=== PATIENT | female | born 1940 | race Caucasian/White ===

== ENCOUNTER 2022-06-20 17:50 | Inpatient (IN) | payer MEDICARE, OTHER ==
[~2022-06-20] VITALS: Ht 152.4 cm; Wt 50.5 kg
[2022-06-20 17:50] VITALS: BP_SYST 120
--- NOTE | 2022-06-20 17:50 | NUR ---
Placed in room 07. Placed on quality assurance monitor final, blood pressure machine and pulse oximeter. To gown for exam. Side rails up.
--- NOTE | 2022-06-20 17:52 | NUR ---
ER DR. BERNARD AT THE BEDSIDE EXAMINING PT
[2022-06-20] MEDS ORDERED: NS 500 ML IV ONE (18:00)
[2022-06-20] MEDS ORDERED: ONDANSETRON HCL 4 MG/2 ML VIAL IVP ONE (18:00)
--- NOTE | 2022-06-20 18:00 | NUR ---
PT BIBA [facility] FROM URGENT CARE WHERE PT WAS BEING SEEN FOR FLU LIKE SYMPTOMS (COVID +), BEGAN TO HAVE RAPID HEART RATE- PER EMS PT WAS IN SVT AT A RATE IN 170S, GIVEN ADENOSINE 6MG THEN 12MG AND ZOFRAN 4 MG EN ROUTE. PT ARRIVES VSS, AAOX4.
[2022-06-20 18:19] LABS: BASOPHILS % (AUTO) 0.2 % (0.0-2.0); EOSINOPHILS % (AUTO) 0.1 % (0.0-4.0); HEMATOCRIT 38.2 % (36-48); HEMOGLOBIN 12.8 g/dL (12.0-16.0); LYMPHOCYTES # (AUTO) 0.8 K/uL (1.0-5.5); LYMPHOCYTES % (AUTO) 14.3 % (20.5-51.5); MEAN CORPUSCULAR HEMOGLOBIN 29 pg (27-31); MEAN CORPUSCULAR HGB CONC 34 % (32-36); MEAN CORPUSCULAR VOLUME 87 fL (79.0-98.0); MONOCYTES # (AUTO) 0.5 K/uL (0.0-1.0); MONOCYTES % (AUTO) 9.7 % (1.7-9.3); NEUTROPHILS # (AUTO) 4.1 K/uL (1.8-7.7); NEUTROPHILS % (AUTO) 75.7 % (40.0-70.0); PLATELET COUNT (AUTO) 136 K/uL (130-430); RED BLOOD CELL COUNT(AUTO) 4.39 MIL/uL (4.2-6.2); RED CELL DISTRIBUTION WIDTH 13.5 % (9.0-15.0); WHITE BLOOD COUNT (AUTO) 5.4 K/uL (4.8-10.8)
[2022-06-20 18:26] LABS: ANION GAP 9 (5-15); CALCIUM 9.1 mg/dL (8.4-11.0); CHLORIDE 107 mmol/L (98-107); CREATININE 1.32 mg/dL (0.55-1.30); GLUCOSE 165 mg/dL (70-99); UREA NITROGEN, BLOOD 24 mg/dL (8-21)
[2022-06-20 18:36] LABS: ALANINE AMINOTRANSFERASE 19 U/L (12-78); ALBUMIN 3.4 g/dL (3.4-4.8); ASPARTATE AMINOTRANSFERASE 21 U/L (10-37); TOTAL BILIRUBIN 0.7 mg/dL (0.0-1.0)
--- NOTE | 2022-06-20 19:54 | NUR ---
PT RESTING IN BED IN RESTING, PT A&O X2 AND FOLLOWING COMMANDS. PT DENIES SOB AND CP. REPORTING NAUSEA, NO VOMITING. PT VSS. SAFETY PRECAUTIONS IN PLACE AND CONNECTED TO MONITOR.
[2022-06-20] MEDS ORDERED: ONDANSETRON HCL 4 MG/2 ML VIAL ONE (20:06)
--- NOTE | 2022-06-20 20:16 | NUR ---
PT DOES NOT KNOW THE NAMES OF HER MEDICATIONS SHE TAKES AT HOME.
--- NOTE | 2022-06-20 20:37 | NUR ---
COVID SWAB OBTAINED AND SENT TO LAB.
--- NOTE | 2022-06-20 20:38 | NUR ---
MRSA SWAB OBTAINED AND SENT TO LAB.
--- NOTE | 2022-06-20 20:42 | NUR ---
Admit bed requested Patient will be admitted to care of Dr. GODINEZ. Admitted to TELEMETRY unit. Diagnosis ELEVATED TROPONIN Inpatient (Yes or No) YES Observation (Yes or No) NO Orientation concerns or request close to nursing station (Yes or No) NO Covid Status PENDING On vent or bipap NO Isolation requirements DROPLET Needs a sitter NO From Home (Yes or if No enter name of facility) YES Requires Dialysis (Yes or No) NO Med Rec Completed (Yes of No) PT UNABLE TO PROVIDE MEDICATIONS
--- NOTE | 2022-06-20 23:45 | NUR ---
Patient will be admitted to care of DR. GODINEZ. Admitted to TELEMETRY unit. Will go to room 125B. Belongings list completed. Complete and up to date summary report printed. SBAR report given TO MAULIK BRADFORD at bedside with opportunity for questions.
--- NOTE | 2022-06-20 23:50 | NUR ---
PATIENT ARRIVED VIA STRETCHER FROM ER, CONDITION STABLE, NO DISTRESS NOTED, 02 SAT 100% ON 2L/NC, PATIENT DESATS ON ROOM AIR PER ER NURSE, ASSESSMENT COMPLETE, ORIENTED TO ROOM AND BED CONTROLS, PATIENT ASSISTED TO BATHROOM WITH 1 ASSIST, ALFONSO WELL, TELE MONITOR APPLIED, SR , NO SKIN BREAKDOWN NOTED, BED ALARM SET, AND PATIENT INSTRUCTED NOT TO GET OUT OF BED WITHOUT CALLING FOR NURSE
[2022-06-21] VITALS (7 sets, daily range): BP systolic 116–142
[2022-06-21] MEDS ORDERED: LOSA100T3 PO (00:33)
[2022-06-21] MEDS ORDERED: DILT120C89 PO (00:33)
[2022-06-21] MEDS ORDERED: LEVO75TA7 PO (00:33)
[2022-06-21] MEDS ORDERED: APIX2.5T PO (00:33)
[2022-06-21] MEDS ORDERED: LIP40 PO (00:33)
[2022-06-21] MEDS ORDERED: MEMA5TAB PO (00:33)
[2022-06-21] MEDS ORDERED: OXYB10TA4 PO (00:34)
[2022-06-21] MEDS ORDERED: SENN8.6T19 PO (00:34)
[2022-06-21] MEDS ORDERED: ONDA-8 TL (00:34)
--- NOTE | 2022-06-21 02:15 | NUR ---
PATIENT SLEEPING AND IN NO DISTRESS AT THIS TIME
--- NOTE | 2022-06-21 05:06 | NUR ---
CONSULTATION PAGED/CALLED Reason for Consultation: ELEVATED TROP Person Who was Notified: VIA TEXT Consulting Physician: Chemistry Tutor Specialty: CARDIO Ordering Physician:
--- NOTE | 2022-06-21 18:53 | NUR ---
CRITICAL [facility] INFORMED RN OF CRITICAL [facility]
--- NOTE | 2022-06-21 19:03 | NUR ---
This promotion writer(primary RN), received a critical lab results from lab T[facility] I 1222, Dr Andrade notified via [phone], and advise to continue to monitor patient.
[2022-06-21] MEDS: ATORVASTATIN 20 MG TABLET PO SCH (21:06)
[2022-06-21] MEDS: LOSARTAN POTASSIUM 50 MG TABLET (COZAAR) PO SCH (21:06)
[2022-06-22 00:51] VITALS: BP_SYST 132
--- NOTE | 2022-06-22 06:24 | NUR ---
Patient in bed. No acute distress noted. Ambulates to the bathroom without difficulty. Will continue to monitor.
[2022-06-22 08:00] VITALS: BP_SYST 129
[2022-06-22] MEDS: LOSARTAN POTASSIUM 50 MG TABLET (COZAAR) PO SCH (08:09)
[2022-06-22] MEDS: ATORVASTATIN 20 MG TABLET PO SCH (08:10)
[2022-06-22 11:13] LABS: ANION GAP 7 (5-15); CALCIUM 8.9 mg/dL (8.4-11.0); CHLORIDE 106 mmol/L (98-107); CREATININE 0.88 mg/dL (0.55-1.30); GLUCOSE 147 mg/dL (70-99); UREA NITROGEN, BLOOD 18 mg/dL (8-21)
[2022-06-22 11:18] LABS: ALANINE AMINOTRANSFERASE 23 U/L (12-78); ASPARTATE AMINOTRANSFERASE 29 U/L (10-37); TOTAL BILIRUBIN 0.5 mg/dL (0.0-1.0)
--- NOTE | 2022-06-22 11:37 | NUR ---
Shift Summary: patient is AAOX4. vitals are stable. patient and son updated on plan of care for shift. patient and son state they have no questions at this time. critical lab reported. Cardiology paged approx [phone]. patient educated on importance of using call light if patient needs staff assistance due to patient being high risk for falls. patient states she understand. will continue out monitor. call light within reach, bed set to low, locked.
[2022-06-22 12:00] VITALS: BP_SYST 130
[2022-06-22 16:53] VITALS: BP_SYST 128
--- NOTE | 2022-06-22 19:00 | NUR ---
Opening Note PT lying in her bed and watching TV. isolated due to positive of COVID19. No S/S of distress or pain. Breathing even and nonlabored. VSS. Bed alarm on and lowest position. Call light in reach.
[2022-06-22 19:30] VITALS: BP_SYST 126
[2022-06-22 20:00] VITALS: BP_SYST 126
--- NOTE | 2022-06-22 22:00 | NUR ---
Replaced telemetry electrodes Pt's telemetry electrodes detached. replaced with new ones.
[2022-06-23 00:59] VITALS: BP_SYST 152
--- NOTE | 2022-06-23 02:30 | NUR ---
Rounding Note PT lying in her bed with eyes closed. Breathing even and nonlabored. No S/S of distress or pain at this moment.
--- NOTE | 2022-06-23 07:20 | NUR ---
CLOSING NOTE PT LYING IN BED. NO S/S OF SCUTE DISTRESS OR PAIN. DENIED SOB. BED ALARM ON AND LOWEST POSITION.
[2022-06-23 08:00] VITALS: BP_SYST 156
[2022-06-23] MEDS: LOSARTAN POTASSIUM 50 MG TABLET (COZAAR) PO SCH (09:10)
[2022-06-23] MEDS: ATORVASTATIN 20 MG TABLET PO SCH (09:11)
[2022-06-23 11:08] LABS: ANION GAP 8 (5-15); CALCIUM 9.1 mg/dL (8.4-11.0); CHLORIDE 105 mmol/L (98-107); CREATININE 0.85 mg/dL (0.55-1.30); GLUCOSE 196 mg/dL (70-99); UREA NITROGEN, BLOOD 13 mg/dL (8-21)
[2022-06-23 11:15] LABS: ALANINE AMINOTRANSFERASE 24 U/L (12-78); ALBUMIN 3.1 g/dL (3.4-4.8); ASPARTATE AMINOTRANSFERASE 29 U/L (10-37); TOTAL BILIRUBIN 0.5 mg/dL (0.0-1.0)
[2022-06-23] MEDS ORDERED: *HEPARIN PER PHARMACY XX ONE (12:15)
[2022-06-23 12:40] VITALS: BP_SYST 152
[2022-06-23 14:19] LABS: PROTHROMBIN TIME 10.4 SECS (9.5-12.5)
[2022-06-23] MEDS ORDERED: HEPARIN SODIUM,PORCINE 5,000 UNITS/ML VIAL IVP ONE (15:00)
[2022-06-23] MEDS ORDERED: HEPARIN SODIUM,PORCINE 2000 UNITS/0.4 ML BOLUS IVP PRN (15:00)
[2022-06-23] MEDS ORDERED: HEPARIN SODIUM,PORCINE 3000 UNITS/0.6 ML BOLUS IVP PRN (15:00)
[2022-06-23] MEDS: HEPARIN 25,000 UNITS in 250 ML PREMIX IV PRN (15:28)
[2022-06-23 16:02] VITALS: BP_SYST 140
--- NOTE | 2022-06-23 18:24 | NUR ---
CLOSING NOTE: PT IS A/A/OX4. HEPARIN DRIP STARTED PER PHARMACY R/T ELEVATED TROPONIN. PT REMAINED STABLE THROUGHOUT THE SHIFT. DENIES ANY C/O CHEST PAIN. BLEEDING PRECAUTIONS INSTRUCTED TO PT. AND NPO AFTER MIDNIGHT FOR POSSIBLE LEXISCAN TEST. PT REMOVED JEWELRY (1 GOLD NECKLACE WITH CROSS PENDANT, X2 YELLOW RINGS, AND 1 GOLD WATCH, PT PLACED THEM ALL IN HER PURSE) ALL CARE NEEDS MET AT THIS TIME. WILL ENDORSE CARE TO PM NURSE.
--- NOTE | 2022-06-23 19:40 | NUR ---
OPENING NOTE PT IS STANDING NEXT TO NEIGHBORS BED TALKING. NO APPARENT SIGNS OF DISTRESS NOTED AT THIS TIME. BED IN LOWEST POSITION WITH SAFETY PRECAUTIONS IN PLACE. CALL LIGHT WITH REACH, PT VERBALIZED HOW TO USE IT. IV FLUIDS RUNNING ORDERED. ALL NEEDS MET AT THIS TIME.
[2022-06-23 20:00] VITALS: BP_SYST 153
--- NOTE | 2022-06-23 23:50 | NUR ---
ROUNDS PT IS LION IN BED WITH EYES OPEN. NO APPARENT SIGNS OF DISTRESS NOTED AT THIS TIME. IV FLUIDS RUNNING ORDERED.
[2022-06-24 00:41] VITALS: BP_SYST 157
--- NOTE | 2022-06-24 02:10 | NUR ---
ROUNDS ASSISTED PT TO BATHROOM. NO APPARENT SIGNS OF DISTRESS NOTED AT THIS TIME. IV FLUIDS RUNNING ORDERED. ALL NEEDS MET AT THIS TIME.
--- NOTE | 2022-06-24 04:15 | NUR ---
ROUNDS PT IS LION IN BED WITH EYES CLOSED. NO APPARENT SIGNS OF DISTRESS NOTED AT THIS TIME. IV FLUIDS RUNNING ORDERED.
--- NOTE | 2022-06-24 06:30 | NUR ---
IV PULLED OUT PT ACCIDENTALLY PULLED OUT IV TO RIGHT FOREARM. SMALL AMUNT OF BLOOD COMING OUT. PRESSURE HELD FOR 3 MINUTES.
--- NOTE | 2022-06-24 07:09 | NUR ---
CLOSING NOTE PT IS LYING IN BED. NO APPARENT SIGNS OF DISTRESS NOTED AT THIS TIME. BED IN LOWEST POSITION WITH SAFETY PRECAUTIONS IN PLACE. CALL LIGHT WITH REACH. PT IS NPO.
--- NOTE | 2022-06-24 07:13 | NUR ---
IV RE-INSERTION: IV site accidentally pulled out by pt. Restarted on left forearm. Successful after 3 attempts. Resumed current IVF of heparin and regulated @ 6ml per hour. Will observe for any signs of infiltration.
[2022-06-24] MEDS ORDERED: REGADENOSON 0.4 MG/5 ML SYRINGE IVP ONE (10:05)
[2022-06-24 11:15] VITALS: BP_SYST 131
[2022-06-24] MEDS: LOSARTAN POTASSIUM 50 MG TABLET (COZAAR) PO SCH (13:19)
[2022-06-24] MEDS: ATORVASTATIN 20 MG TABLET PO SCH (13:20)
[2022-06-24 17:10] VITALS: BP_SYST 135
--- NOTE | 2022-06-24 19:25 | NUR ---
CHANGE OF SHIFT; endorsed by day shift nurse Sterling. on Heparin drip @ 600 units/hr. on Covid isolation. no distress. call light within reach.
[2022-06-24 20:00] VITALS: BP_SYST 136
--- NOTE | 2022-06-24 20:30 | NUR ---
NOTES: pt. awake, alert and oriented. resting when received. IV Heparin infusing. moves all extremities. on quality assurance monitor body and shows sinus rhtym. call light at bedside. safety precautions observed. instructed pt. to use call light for help and verbalized understanding.
--- NOTE | 2022-06-24 20:46 | NUR ---
END OF SHIFT SUMMARY: Patient has had a very good day today with no concerns. She has taken all prescribed medications and she got up throughout the day and walked to the bathroom, took a bath, brushed teeth and other personal care provided on her own. Patient spent the day watching TV and speaking on the phone to family and friends. Patient had no needs at the end of the shift and showed no signs of distress or discomfort at this time.
--- NOTE | 2022-06-24 22:30 | NUR ---
NOTES: spoke to Dr. Calvert, cotton header for Dr. Luna, ordered PTT in am, pt. on Heparin drip @ 600 units/hr via left forearm. no complaints manifested. ambulated to the restroom, stand by.
--- NOTE | 2022-06-25 00:15 | NUR ---
NOTES: pt. asleep when checked. call light at bedside.
[2022-06-25 00:24] VITALS: BP_SYST 154
--- NOTE | 2022-06-25 02:30 | NUR ---
NOTES: cardiac pattern unchanged. repositioned self. IV Heparin continuous. no complaints.
--- NOTE | 2022-06-25 04:00 | NUR ---
NOTES: condition observed. remain sleeping. isolation observed for Covid.
--- NOTE | 2022-06-25 05:30 | NUR ---
NOTES: pt. awakened and ambulated to the restroom, stand by. kept comfortable in bed, covered with blanket.
--- NOTE | 2022-06-25 06:45 | NUR ---
CLOSING NOTES; CONDITION UNCHANGED, hEPARIN DRIP @ 600 UNITS/HR. PENDING PTT. FOR FURTHER CARE AND OBSERVATION WILL ENDORSE TO INCOMING SHIFT.
[2022-06-25 08:00] VITALS: BP_SYST 155
[2022-06-25] MEDS: LOSARTAN POTASSIUM 50 MG TABLET (COZAAR) PO SCH ×2 (09:00→10:51)
[2022-06-25] MEDS: ATORVASTATIN 20 MG TABLET PO SCH (09:00)
[2022-06-25] MEDS: HEPARIN 25,000 UNITS in 250 ML PREMIX IV PRN (11:29)
[2022-06-25 12:00] VITALS: BP_SYST 128
[2022-06-25 13:50] LABS: ANION GAP 8 (5-15); CALCIUM 9.2 mg/dL (8.4-11.0); CHLORIDE 106 mmol/L (98-107); CREATININE 0.74 mg/dL (0.55-1.30); GLUCOSE 86 mg/dL (70-99); UREA NITROGEN, BLOOD 10 mg/dL (8-21)
[2022-06-25 13:56] LABS: ALANINE AMINOTRANSFERASE 28 U/L (12-78); ALBUMIN 3.1 g/dL (3.4-4.8); ASPARTATE AMINOTRANSFERASE 25 U/L (10-37); TOTAL BILIRUBIN 0.3 mg/dL (0.0-1.0)
[2022-06-25 15:25] VITALS: BP_SYST 123
[2022-06-25] MEDS ORDERED: APIXABAN 2.5 MG TABLET PO ONE (15:30)
[2022-06-25 20:00] VITALS: BP_SYST 138
[2022-06-25] MEDS: APIXABAN 2.5 MG TABLET PO SCH (21:00)
--- NOTE | 2022-06-25 21:26 | NUR ---
NEW ORDERS FOR DISCHARGE PLANNING. HEPARIN DRIP DISCONTINUED AND PATIENT STARTED ON ELQUIS LAST PTT VERY HIGH SO HELD FIRST DOSE. INFORMED NIGHT NURSE TO FOLLOW LABS PRIOR TO GIVING EVENING DOSE. IN GOOD SPIRITS. NO COMPLAINTS OR REQUESTS ALL DAY
[2022-06-25 23:58] VITALS: BP_SYST 140
[2022-06-26 08:00] VITALS: BP_SYST 141
--- NOTE | 2022-06-26 08:21 | NUR ---
OPENING NOTES: PT IN BED WITH EYES CLOSED. PT WOKE UP TO EAT BREAKFAST. NO S/S OF DISTRESS OR PAIN REPORTED. BREATHING IS EVEN AND UNLABORED ON RA. ALL NEEDS MET AT THIS TIME, SAFETY CHECKS MADE AND CALL LIGHT WITHIN REACH.
[2022-06-26] MEDS: APIXABAN 2.5 MG TABLET PO SCH ×2 (09:00→21:16)
[2022-06-26] MEDS: ATORVASTATIN 20 MG TABLET PO SCH (10:05)
--- NOTE | 2022-06-26 10:08 | NUR ---
NOTES: HELD ELIQUIS. PT PTT IS 150 FROM LABS DRAWN ON 06/25/22
[2022-06-26 12:00] VITALS: BP_SYST 139
[2022-06-26 12:02] LABS: ANION GAP 6 (5-15); CALCIUM 9.2 mg/dL (8.4-11.0); CHLORIDE 105 mmol/L (98-107); GLUCOSE 122 mg/dL (70-99); UREA NITROGEN, BLOOD 14 mg/dL (8-21)
[2022-06-26 12:09] LABS: ALANINE AMINOTRANSFERASE 38 U/L (12-78); ASPARTATE AMINOTRANSFERASE 33 U/L (10-37); TOTAL BILIRUBIN 0.4 mg/dL (0.0-1.0)
--- NOTE | 2022-06-26 12:14 | NUR ---
CRITICAL LAB: TROPONIN LEVEL 938 REPORTED FROM JACQUELIN IN THE LAB. CALLING DR ARRIAGA TO REPORT. Addendum: 06/26/22 at 1233 [address] Makayla Ortiz LVN [address] ARRIAGA CALLED BACK, CRITICAL LAB OF [facility]OPON[facility] 938 REPORTED. NO NEW ORDERS AT THIS TIME.
--- NOTE | 2022-06-26 14:34 | NUR ---
Need PT eval to determine SNf Placement, patient will not be able to go until 07/01/22
[2022-06-26 16:00] VITALS: BP_SYST 140
--- NOTE | 2022-06-26 17:21 | NUR ---
NOTES: PT'S SON DAVI CALLED. UPDATED HIM ON THE PT STATUS. HE VERBALIZED UNDERSTANDING.
--- NOTE | 2022-06-26 19:32 | NUR ---
CLOSING NOTES: PT IN BED WATCHING TV. NO S/S OF DISTRESS OR PAIN REPORTED. BREATHING IS EVEN AND UNLABORED ON RA. ALL NEEDS MET AT THIS TIME, SAFETY CHECKS MADE AND CALL LIGHT WITHIN REACH. WILL ENDORSE TO INSULATION SPRAYER NURSE.
[2022-06-26 20:00] VITALS: BP_SYST 156
--- NOTE | 2022-06-26 20:25 | NUR ---
NOTIFIED DR. GEGE GODINEZ ON PATIENT PTT LEVEL BEING GREATER THEN 150 FROM 2 DAYS AGO. CLARIFIED ORDERS WITH DR GODINEZ. AND WAS TOLD TO CONTINUE TO GIVE ELIQUIS ORDERED.
[2022-06-27] VITALS: BP_SYST 150
--- NOTE | 2022-06-27 07:01 | NUR ---
PT SLEPT THROUGH THE NIGHT. NO CHANGES IN CONDITION. WILL ENDORSE CARE TO DAY NURSE
--- NOTE | 2022-06-27 07:56 | NUR ---
OPENING NOTES: PT LYING BED WITH EYES CLOSED. PT SAT UP TO EAT BREAKFAST. BREATHING EVEN AND NONLABORED ON RA. NO S/S OF ACUTE DISTRESS OR PAIN REPORTED. CALL LIGHT IN REACH. SAFETY CHECKS IN PLACE.
[2022-06-27 08:00] VITALS: BP_SYST 149
[2022-06-27] MEDS: ATORVASTATIN 20 MG TABLET PO SCH (09:49)
[2022-06-27] MEDS: LOSARTAN POTASSIUM 50 MG TABLET (COZAAR) PO SCH (09:50)
[2022-06-27] MEDS: APIXABAN 2.5 MG TABLET PO SCH ×2 (11:13→20:02)
[2022-06-27 11:20] VITALS: BP_SYST 143
[2022-06-27 11:21] VITALS: BP_SYST 143
--- NOTE | 2022-06-27 12:00 | NUR ---
ROUNDS: PT IS IN BED WITH EYES CLOSED. NO S/S OF DISTRESS OR PAIN REPORTED. ALL NEEDS MET AT THIS TIME, SAFETY CHECKS MADE AND CALL LIGHT WITHIN REACH.
[2022-06-27 15:15] VITALS: BP_SYST 128; BP_SYST 143
--- NOTE | 2022-06-27 16:00 | NUR ---
ROUNDS: PT SITTING EDGE OF BED. INFORMED ME OF HER BM. NO S/S OF DISTRESS OR PAIN REPORTED. BREATHING IS EVEN AND UNLABORED ON RA. ALL NEEDS MET AT THIS TIME ,SAFETY CHECKS MADE AND CALL LIGHT WITHIN REACH.
[2022-06-27 16:47] LABS: ANION GAP 6 (5-15); CALCIUM 9.3 mg/dL (8.4-11.0); CHLORIDE 104 mmol/L (98-107); CREATININE 0.66 mg/dL (0.55-1.30); GLUCOSE 130 mg/dL (70-99); UREA NITROGEN, BLOOD 14 mg/dL (8-21)
[2022-06-27 16:54] LABS: ALANINE AMINOTRANSFERASE 45 U/L (12-78); ALBUMIN 3.2 g/dL (3.4-4.8); ASPARTATE AMINOTRANSFERASE 34 U/L (10-37); TOTAL BILIRUBIN 0.3 mg/dL (0.0-1.0)
--- NOTE | 2022-06-27 17:04 | NUR ---
CRITICAL LAB: JACQUELIN FROM LAB REPORTED TROPONIN OF [id number]. [address] ARRIAGA NOW TO REPORT. Addendum: 06/27/22 at 1824 by Makayla Ortiz LVN CALLED DR ARRIAGA 2ND TIME AT 1724. AND THEN AT 1815. INFORMED BY CALL SERVICE THAT DR GODINEZ IS ON THE CALL. WAITING FOR RETURN CALL TO REPORT CRITICAL LAB.
--- NOTE | 2022-06-27 18:19 | NUR ---
CLOSING NOTES: CLOSING NOTES: PT IN BED EATING DINNER AND WATCHING TV. NO S/S OF DISTRESS OR PAIN REPORTED. BREATHING IS EVEN AND UNLABORED ON RA. ALL NEEDS MET AT THIS TIME, SAFETY CHECKS MADE AND CALL LIGHT WITHIN REACH. WILL ENDORSE TO NET WASHER.
[2022-06-28 00:28] VITALS: BP_SYST 130
[2022-06-28 08:00] VITALS: BP_SYST 135
--- NOTE | 2022-06-28 08:00 | NUR ---
Initial notes awake, alert, ambulate with steady gait. denies any chest pain or shortness of breath. On room air. Safety precaution observed. Call light within reach. Enc to call for help as needed
[2022-06-28 08:41] LABS: BASOPHILS % (AUTO) 0.4 % (0.0-2.0); EOSINOPHILS # (AUTO) 0.3 K/uL (0.0-0.4); EOSINOPHILS % (AUTO) 4.6 % (0.0-4.0); HEMATOCRIT 41.6 % (36-48); HEMOGLOBIN 14.1 g/dL (12.0-16.0); LYMPHOCYTES % (AUTO) 33.6 % (20.5-51.5); MEAN CORPUSCULAR HEMOGLOBIN 29 pg (27-31); MEAN CORPUSCULAR HGB CONC 34 % (32-36); MEAN CORPUSCULAR VOLUME 85 fL (79.0-98.0); MONOCYTES # (AUTO) 0.3 K/uL (0.0-1.0); MONOCYTES % (AUTO) 5.6 % (1.7-9.3); NEUTROPHILS # (AUTO) 3.3 K/uL (1.8-7.7); NEUTROPHILS % (AUTO) 55.8 % (40.0-70.0); PLATELET COUNT (AUTO) 220 K/uL (130-430); RED BLOOD CELL COUNT(AUTO) 4.88 MIL/uL (4.2-6.2); RED CELL DISTRIBUTION WIDTH 13.6 % (9.0-15.0); WHITE BLOOD COUNT (AUTO) 5.9 K/uL (4.8-10.8)
[2022-06-28 08:58] LABS: ANION GAP 5 (5-15); CALCIUM 10.2 mg/dL (8.4-11.0); CHLORIDE 104 mmol/L (98-107); CREATININE 0.74 mg/dL (0.55-1.30); GLUCOSE 106 mg/dL (70-99); UREA NITROGEN, BLOOD 13 mg/dL (8-21)
[2022-06-28] MEDS: LOSARTAN POTASSIUM 50 MG TABLET (COZAAR) PO SCH (09:04)
[2022-06-28] MEDS: ATORVASTATIN 20 MG TABLET PO SCH (09:05)
[2022-06-28] MEDS: APIXABAN 2.5 MG TABLET PO SCH ×2 (09:08→21:26)
--- NOTE | 2022-06-28 11:30 | NUR ---
Notes Resting, no distress
[2022-06-28 13:39] VITALS: BP_SYST 140
--- NOTE | 2022-06-28 15:00 | NUR ---
NOTES- RESTING IN BED, DENIES ANY PAIN. ALL NEEDS MEET.
--- NOTE | 2022-06-28 16:50 | NUR ---
NOTES PHYSICAL THERAPY AT BEDSIDE.
[2022-06-28 17:24] VITALS: BP_SYST 145
--- NOTE | 2022-06-28 18:18 | NUR ---
closing notes Alert, eating dinner. denies any chest pain. All needs meet.
--- NOTE | 2022-06-28 20:00 | NUR ---
RECEIVED REPORT BY MORNING NURSE, START OF SHIFT ROUNDS. PATIENT IS LYING IN BED DENIES OF ANY PAIN, NO S/S OF ANY DISCOMFORT, ENCOURAGE TO USE CALL LIGHT FOR ASSISTANCE. ON COVID ISOLATION.
[2022-06-28 20:19] VITALS: BP_SYST 126
[2022-06-29 01:22] VITALS: BP_SYST 134
--- NOTE | 2022-06-29 06:32 | NUR ---
CLOSING Patient slept throughout the night, patient is comfortably in bed, no s/s of any pain nor discomfort, bed at lowest position for safety with bed alarm on, call light within reach. will endorse to morning nurse.
[2022-06-29 08:52] VITALS: BP_SYST 126
[2022-06-29] MEDS: ATORVASTATIN 20 MG TABLET PO SCH (08:56)
[2022-06-29] MEDS: LOSARTAN POTASSIUM 50 MG TABLET (COZAAR) PO SCH (08:57)
[2022-06-29] MEDS: APIXABAN 2.5 MG TABLET PO SCH (08:58)
[2022-06-29 11:31] VITALS: BP_SYST 102
[2022-06-29 12:50] VITALS: BP_SYST 102
--- NOTE | 2022-06-29 13:24 | NUR ---
D/C Patient Patient given medication reconciliation form and D/C instructions. Exit Care provided. Patient and son educated on D/C instructions, both verbalized understanding. MD discussed with patient the results and treatment provided. Ambulatory with steady gait for discharge to home. Patient in stable condition, ID band removed. IV catheter removed, intact and dressing applied, no active bleeding. Rx of given. Patient educated on pain management. All belongings sent with patient.
[2022-06-29 14:12] LABS: ANION GAP 11 (5-15); CALCIUM 9.7 mg/dL (8.4-11.0); CHLORIDE 104 mmol/L (98-107); CREATININE 0.96 mg/dL (0.55-1.30); GLUCOSE 89 mg/dL (70-99); UREA NITROGEN, BLOOD 16 mg/dL (8-21)
== END 2022-06-29 20:52 | disposition home health service (06) | DRG 280 ==
LOC: SED 17:50 → STU 19:57
PROVIDERS: ADMIT Specialist; ATTEND Specialist
DX: I21.4 Non-ST elevation (NSTEMI) myocardial infarction (principal); U07.1 COVID-19; I47.1 Supraventricular tachycardia; E03.9 Hypothyroidism, unspecified; F03.90 Unspecified dementia, unspecified severity, without behavioral disturbance, psychotic disturbance, mood disturbance, and anxiety; N18.31 Chronic kidney disease, stage 3a; I12.9 Hypertensive chronic kidney disease with stage 1 through stage 4 chronic kidney disease, or unspecified chronic kidney disease; Z79.899 Other long term (current) drug therapy
CPT/HCPCS: 36415; 71045; 80048; 80053; 83735; 83880; 84484; 85025; 85610-TC; 85730-TC; 93005; 93306; 96360; 97116-GP; 97163-GP; 99285; G0378; J1644; J2405; J2785